=== PATIENT | female | born 1980 | race Caucasian/White ===

== ENCOUNTER 2024-04-13 22:01 | Emergency (ER) | payer OTHER, MEDICAID, SELFPAY ==
[2024-04-13 22:05] VITALS: BP 156/84; PULSE 79; RESP 18; TEMP 36.3; O2SAT 96; BMI 40.8
--- NOTE | 2024-04-13 22:15 | ECG_ITS ---
[facility] Test Date: 2024-04-13 Pat Name: Halima Mesa Department: Room: Gender: Female Physician/Internist: : 1980 Requested By: Delta Clay Order Number: [id number] Lainez MD: Bernard Shen M.D. Measurements Intervals [place] Rate: 76 P: 14 SD: 167 QRS: 56 QRSD: 80 T: 35 QT: 365 QTc: 411 Interpretive Statements SINUS RHYTHM No previous ECG available for comparison Electronically Signed On 04-16-2024 18:06:53 SAND SLINGER by Bernard Shen M.D. [id number]
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
[2024-04-13 22:41] VITALS: BP 148/66; PULSE 77; RESP 18; O2SAT 97
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
[2024-04-13 23:00] LABS: Basophils % 0.4 %; Eosinophils # 0.6 10^3/uL (0.0-0.8); Eosinophils % 6.6 %; Hematocrit 38.6 % (36-47); Lymphocytes % 21.9 %; Mean Corpuscular HGB Conc 30.8 g/dL (30-55); Mean Corpuscular Hemoglobin 26.2 pg (27-33); Mean Platelet Volume 9.1 fL (7.4-10.4); Monocytes # 0.3 10^3/uL (0.2-0.9); Monocytes % 3.6 %; Neutrophils # 6.04 10^3/uL (1.8-7.7); Neutrophils % 67.3 %; Nucleated Red Blood Cells % 0 %; Platelet Count 342 10^3/cmm (157-399); Red Blood Count 4.54 10^6/uL (3.85-5.65); White Blood Count 8.98 10^3/uL (3.29-11.43)
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
[2024-04-13 23:21] LABS: Alanine Aminotransferase 14 U/L (0-33); Albumin Level 3.8 g/dL (3.5-5.2); Alkaline Phosphatase 104 U/L (35-105); Anion Gap 15.9 (5-19); Aspartate Amino Transferase 14 U/L (0-32); Blood Urea Nitrogen 13 mg/dL (6-20); Calcium 9.4 mg/dL (8.5-10.5); Carbon Dioxide 25 mmol/L (22-29); Chloride 102 mmol/L (98-107); Creatinine Clr Calc Pharmacy 119.3062; Glomerular Filtration Rate 68.7 mL/min (90-130); Glucose 150 mg/dL (65-115); Osmolality Calculated 291 mOsm/kg (285-295); Potassium 3.9 mmol/L (3.5-5.1); Sodium 139 mmol/L (136-145); Total Bilirubin 0.2 mg/dL (0.15-1.2); Total Protein 7.8 g/dL (6.6-8.7)
[2024-04-13 23:30] VITALS: BP 145/63; PULSE 86; RESP 19; O2SAT 97
[2024-04-13] MEDS: ipratropium-albuterol 3 mL Neb INHALATION (23:57)
[2024-04-13 23:59] VITALS: PULSE 78; RESP 18; O2SAT 98
[2024-04-14] VITALS: BP 135/57; PULSE 85; RESP 19; O2SAT 97
[2024-04-14 00:02] VITALS: PULSE 82; RESP 18; O2SAT 99
[2024-04-14 00:14] VITALS: BP 137/60; PULSE 75; RESP 18; O2SAT 98
== END 2024-04-14 00:15 | disposition home or self-care (01) ==
PROVIDERS: Emergency Provider Physician Assistant; PCP Nurse Practitioner
DX: T59.891A Toxic effect of other specified gases, fumes and vapors, accidental (unintentional), initial encounter (principal); X58.XXXA Exposure to other specified factors, initial encounter; J45.21 Mild intermittent asthma with (acute) exacerbation
CPT/HCPCS: 36415; 71045; 80053; 85025; 93005; 94640; 99285

== ENCOUNTER → 2024-09-15 13:22 | Outpatient (BNVA) | payer OTHER, MEDICAID, SELFPAY | PROVIDERS: PCP Nurse Practitioner; Visit Provider Family Medicine | DX: R30.0 Dysuria (principal) | CPT/HCPCS: 81000 ==

== ENCOUNTER 2024-09-16 10:39 | Emergency (ER) | payer OTHER, MEDICAID, SELFPAY ==
--- OUTSIDE RECORDS SUMMARY | 2023-12-05 04:00 | XMS_ITS ---
Author Organization [facility] Address [address] [place] [address] Care Team Providers Care Newspaper Vendor Name Role Phone Rhea MILES, [facility] Primary Care Provider U milagrossouravaliza McdanielsServando Unavailable [phone] Migration, Provider Unavailable Unavailable REASON FOR VISIT EMR-[facility] [place] Encounters Encounter Location Date Provider Diagnosis Migrated_Facility 0 0 12/05/2023 Provider Migration Plan Of Treatment Medication Medication Name Sig Start Date Stop Date Notes HYDROcodone-Acetaminop hen 5-325 MG Oral Tablet 1 Tablet Every 6 Hours PRN do not exceed 3 tablets a day. 07/15/2023 08/14/2023 *Reorder from [facility] for eRx and Interaction Alerts* Progress Notes * RANDI MESA SDOB: [birth year] (44 yo F)Acc No.[id number]:12/05/2023 Patient: RANDI GUALLPA :1980 A ge:43 Y S ex:Female Address:[place] [address] * Refills Stop HYDROcodone-Acetaminophen 5-325 MG Oral Tablet, 1 Tablet Every 6 Hours PRN do not exceed 3 tablets a day. Subjective: * Chief Complaints: * E MR-Segundo * * Date:
--- OUTSIDE RECORDS SUMMARY | 2023-12-06 04:00 | XMS_ITS ---
Author Organization [facility] Address [address] [place] [address] Care Team Providers Care Shear Operator Name Role Phone Rhea MILES, [facility] Primary Care Provider U milagrosdionisio McdanielsServando Unavailable [phone] Migration, Provider Unavailable Unavailable Allergies Allergen (clinical drug ingredient) Drug/Non Drug Allergy documented on EMR Reaction Allergy Type Onset Date Status Substance with sulfonamide structure and antibacterial mechanism of action (substance) SULFA (SULFONAMIDE ANTIBIOTICS) (uncoded) Unknown Allergy Active meloxicam Meloxicam breaks out Drug Allergy Active amoxicillin Amoxicillin Unknown Drug Allergy Act thais sulfadiazine Sulfadiazine Unknown Drug Allergy A ctive tramadol Tramadol Unknown Drug Allergy Active REASON FOR VISIT EMR-[facility] [place] Social History Social History Additional Details Category Social Info Options Details Migrated Social History Migrated Social History Alcoholic beverages? - No, Currently on disability? - Yes, Marital Status - single, Smoking status (MU) - Never smoker, Working currently? - No Encounters Encounter Location Date Provider Diagnosis Migrated_Facility 0 0 12/06/2023 Provider Migration Plan Of Treatment No Information Progress Notes * RANDI MESA SDOB: [birth year] (44 yo F)Acc No.[id number]:12/06/2023 Patient: RANDI GUALLPA :1980 A ge:43 Y S ex:Female Address: [place] [address] Subjective: * Chief Complaints: * E MR-Segundo * Medical History: Arthritis, M igraines, S tomach ulcer, S welling of joint of multiple sites, * Surgical History: section Gallbladder surgery Kyphoplasty * Family History: M igrated Family History: : chronic pain, D iabetes, f ibromyalgia, R heumatoid arthritis. * Social History: M igrated Social History: M igrated Social History: Alcoholic beverages? - No, C urrently on disability? - Yes, M arital Status - single, S moking status (MU) - Never smoker, W orking currently? - No. * Allergies: S ULFA (SULFONAMIDE ANTIBIOTICS): AllergyMeloxicam: breaks out - AllergyAmoxicillin: AllergySulfadiazine: AllergyTramadol: Allergy * * Date:
[2024-09-16 10:40] VITALS: BP 128/59; PULSE 61; RESP 16; TEMP 37; O2SAT 97; BMI 38.4
--- OUTSIDE RECORDS SUMMARY | 2024-09-16 10:46 | XMS_ITS | Patient Health Record ---
Author Organization [facility] Address [address] [address] Care Team Providers Care Decorating And Assembly Supervisor Name Role Phone Ethel Stokes Unavailable [phone] Allergies Allergen (clinical drug ingredient) Drug/Non Drug Allergy documented on EMR Reaction Allergy Type Onset Date Status meloxicam Meloxicam Unknown Drug Allergy Active Substance with sulfonamide structure and antibacterial mechanism of action (substance) Sulfa Antibiotics hives Drug Allergy Active Reason For Referral No Information Medications Medication SIG (Take, Route, Frequency, Duration) Notes Start Date End Date Status Triamcinolone Acetonide 0.1 % 1 application Externally Twice a day; Duration: 7 days 07/26/2024 Active Triamcinolone Acetonide 0.1 % 1 application Externally Twice a day; Duration: 7 days 08/04/2021 Not-Taking Albuterol Sulfate HFA 108 (90 Base) MCG/ACT INHALE TWO (2) PUFFS EVERY 4 HOURS NEEDED FOR COUGH/WHEEZING; Duration: 15 Active AeroChamber MV - as directed; Duratio n: 14 days Active Ventolin HFA 108 (90 Base) MCG/ACT 2 puff Inhalation every 4 hrs; Duration: as needed 09/26/2021 Not-Taking Penicillin V Potassium 500 MG 1 tablet Orally four times daily Not-Taking traMADol HCl 50 MG 1 tablet as needed f or pain Orally twice daily; Duration: 5 days 11/19/2021 Not-Taki ng Social History Sex Assigned At : Social History Observation Description Sex Assigned At Female Problems Problem Type SNOMED Code ICD Code Onset Dates Problem Status W/U Status Risk Notes Problem Morbid obesity (disorder) (373603097) Morbid (severe) obesity due to excess calories (E66.01) Active confirmed Vital Signs Heart Rate 59 /min 07/26/2024 Temperature 98.3 degrees Fahrenheit 07/26/2024 Height-cm 175.26 cm 07/26/2024 Oximetry 98 % 07/26/2024 Weight-kg 130.45 kg 07/26/2024 Height 69 in 07/26/2024 Weight 287.6 lbs 07/26/2024 BMI 42.47 kg/m2 07/26/2024 Encounters Encounter Location Date Provider Diagnosis [place] [address] [address] [facility] [address] [place] [address] 07/26/2024 Ethel [place] Contact dermatitis due to plant L25.5 and Morbid (severe) obesity due to excess calories E66.01 Assessments Encounter Date Diagnosis (ICD Code) Assessment Notes Treatment Notes Treatment Clinical Notes Section Notes 07/26/2024 Morbid (severe) obesity due to excess calories (ICD-10 - E66.01) Activity as tolerated. 07/26/2024 Contact dermatitis due to plant (ICD-10 - L25.5) 07/26/2024 Other daily soapy bath or shower. wash any contaminated items. rtc if worsening or not improving Plan Of Treatment No Information Insurance Providers Payer Name Payer Address Payer Phone Subscriber Number Group Number Insured Name Patient Relationship to Insured Coverage Start Date Coverage End Date [facility] [address] [place] [address] [id number] MODSHalima Garcia Self - patient is the insured Medicaid [address] [place] [address] [id number] Halima Mesa Self - patient is the insured Medical (General) History Medical History History ICD Code Crohn's disease diverticulosis
--- OUTSIDE RECORDS SUMMARY | 2024-09-16 10:46 | XMS_ITS | Patient Health Record ---
Author Organization [facility] Address [address] [place] [address] Care Team Providers Care Central Office Equipment Installer Name Role Phone Rhea MILES, [facility] Primary Care Provider U Servando Mercado Unavailable [phone] Migration, Provider Unavailable Unavailable Petrona Agudelo Unavailable [phone] Allergies Allergen (clinical drug ingredient) Drug/Non Drug Allergy documented on EMR Reaction Allergy Type Onset Date Status meloxicam Meloxicam breaks out Drug Allergy Active amoxicillin Amoxicillin Unknown Drug Allergy Act thais Substance with sulfonamide structure and antibacterial mechanism of action (substance) Sulfa Antibiotics Unknown Drug Allergy Active sulfadiazine Sulfadiazine Unknown Drug Allergy A ctive tramadol Tramadol Unknown Drug Allergy Active Reason For Referral No Information Medications Medication SIG (Take, Route, Frequency, Duration) Notes Start Date End Date Status Vader 5-325 MG Tablet 1 tablet as needed Orally every 6 hrs; Duration: 7 days 08/04/2019 Not-Taking Gabapentin 300 MG Capsule 1 capsule Orally TID Active Omeprazole 20 MG Capsule Delayed Release 1 capsule 30 minutes before morning meal Orally Once a day Active Vader 7.5-325 MG Tablet 1 tablet as need ed Orally every 6 hrs; Duration: 7 days 07/28/2019 Not-Taking Diclofenac Sodium 75 MG Tablet Delayed Release 1 tablet Orally Twice a day; Duration: 30 day(s) 11/15/2019 Active Social History Tobacco Use: Social History Observation Description Date Details (start date - stop date) Never Smoker NA - NA Social History Drugs/Alcohol: Social Info Question Answer Notes Alcohol Screen (Audit-C) Did you have a drink containing alcohol in the past year? No Points 0 Interpretation Negative Drugs Have you used drugs other than those for medical reasons in the past 12 months? No Tobacco Use: Social Info Question Answer Notes xTobacco Use/Smoking Are you a nonsmoker Additional Details Category Social Info Options Details Migrated Social History Migrated Social History Alcoholic beverages? - No, Currently on disability? - Yes, Marital Status - single, Smoking status (MU) - Never smoker, Working currently? 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 Encounters Encounter Location Date Provider Diagnosis [facility] [address] [facility] [place] [address] 10/13/2023 Petrona Agudelo [facility] [address] [facility] [place] [address] 09/30/2023 Petrona Agudelo Migrated_Facility 0 0 12/06/2023 Provider Migration Migrated_Facility 0 0 12/05/2023 Provider Migration Plan Of Treatment No Information Insurance Providers Payer Name Payer Address Payer Phone Subscriber Number Group Number Insured Name Patient Relationship to Insured Coverage Start Date Coverage End Date [place] [address] [place] [address] [id number] RANDI MESA Self - patient is the insured [facility] Commercial [address] [address] [place] [address] [id number] RANDI MESA Self - patient is the insured [place] Medicaid [address] [place] [address] [id number] RANDI MESA Self - patient is the insured Medical (General) History Medical History History ICD Code Chronic back pain Chron's disease IBS DM type 2 Surgical History Surgery Date(Month/Year) Cholecystectomy x 2 Kyphoplasty section Gallbladder surgery Hospitalization History Reason Date(Month/Year) x 2 Cholecystectomy
--- NOTE | 2024-09-16 10:56 | W.ED.GENADLT ---
HPI - General Adult General: Chief complaint: Eye Problems Stated complaint: swelling/redness - left eye Time Seen by Provider: 09/16/24 10:41 Source: patient Mode of arrival: ambulatory Limitations: no limitations History of Present Illness: Patient is a 44-year-old female presents to ED today with two separate complaints. The first of which is a red itchy rash involving her face. She states she has been outside working around plants and trees and thinks maybe I got into something . She states rash initially was on the right side of her face but has now spread. Again she states it is itchy. She was reportedly seen recently and got placed on Augmentin for possible cellulitis but patient states she is unable to take this due to an allergy. Patient does not feel like this is cellulitis. No systemic symptoms. No fevers. Her second complaint is itchiness and swelling involving her vulva. She states she was recently placed on 2 rounds of antibiotics due to a dental infection and thinks she developed a yeast infection. She states she had been treated with Diflucan and is now on Flagyl as somebody thought she maybe had bacterial vaginosis. Patient states she has no concern for STIs has not had any new sexual partners. Onset (ago): day(s) Location: face and genitals Severity: mild Quality: burning Associated symptoms: Reports rash (face); Deny chest pain, dyspnea, headache(s), malaise, nausea or vomiting Treatments prior to arrival: none Related Data Previous Rx's ?Medication ?Instructions ?Recorded prednisone 10 mg tablet 10 mg PO DAILY 7 days #27 tabs 09/16/24 Allergies Allergy/AdvReac Type Severity Reaction Status Date / Time Sulfa (Sulfonamide Allergy Unknown Verified 09/15/24 13:19 Antibiotics) Review of Systems Const: Denies: fever(s), chills, body aches, fatigue or malaise Eyes: Denies: change in vision or blurry vision Card: Denies: chest pain Resp: Denies: dyspnea GI: Denies: abdominal pain, nausea, vomiting or change in bowel habits : Reports: genital pruritis; Denies: flank pain, difficulty voiding, dysuria, urinary frequency, urinary urgency, urinary hesitancy, vaginal odor, vaginal bleeding or pelvic pain Musc: Denies: neck pain, back pain, extremity pain, extremity swelling, joint pain, joint swelling or joint redness Skin/Breast: Reports: rash (face) Neuro: Denies: headache(s), numbness in extremities, weakness in extremities, sensory changes or dizziness PFSH ED PFSH: Social History Smoking and tobacco/nicotine status: never used tobacco/nicotine Physical Exam Const: COMMON NORMALS: no acute distress, patient oriented x3, no limitations, alert and well nourished GENERAL APPEARANCE: cooperative NUTRITIONAL APPEARANCE: overweight ORIENTATION/CONSCIOUSNESS: Yes awake, Yes oriented to person, Yes oriented to place and Yes oriented to time HENMT: FACE & SINUS: other (dermatitis involving face) Resp: COMMON NORMALS: normal respiratory effort and clear to auscultation bilaterally AUSCULTATION: clear to auscultation bilaterally Cardio: COMMON NORMALS: regular rate and regular rhythm RATE: regular rate RHYTHM: regular rhythm : OTHER: Exterior genital exam performed with a registered dental hygienist. She appears to have inflamed and edematous vulva-admittedly probably from scratching. No labial abscess or Bartholin cyst/abscess. Extremity: GENERAL: Yes normal exam except as noted Neuro: COMMON NORMALS: patient oriented x3, moves all extremities, no focal motor deficits, no sensory deficits noted and gait normal SENSORIUM/ORIENTATION: Yes alert, Yes oriented to person, Yes oriented to place and Yes oriented to time Skin: RASHES: rashes noted (face) Course Vital Signs: Vital signs: Vital Signs Temperature 98.6 F 09/16/24 10:40 Pulse Rate 61 09/16/24 10:40 Respiratory Rate 16 09/16/24 10:40 Blood Pressure 128/59 09/16/24 10:40 Pulse Oximetry 97 09/16/24 10:40 Oxygen Delivery Me thod Room Air 09/16/24 10:40 [facility] - General Adult Medical Decision Making Patient will be treated with antibiotics for her facial dermatitis most likely related to plants given her history. Discussed [id number] Monistat for treatment of her most likely candidal vulvovaginitis. Recommend f/u with primary care. No radiology studies performed this visit Discharge Plan Discharge Patient Disposition: Home Clinical Impression: Dermatitis due to plants, Candidal vulvitis Condition: Stable Prescriptions: New prednisone 10 mg tablet 10 mg PO DAILY 7 Days Qty: 27 0RF Rx Instructions: 6 tabs on days 1-2, 5 tabs on days 3, 4 tabs on day 4, 3 tabs on day 5, 2 tabs on day 6, 1 tab on day 7 Discontinued amoxicillin-pot clavulanate 875-125 mg tablet 1 tab PO BID Qty: 14 0RF Discharge Orders: Discharge ED (Routine); Ordered 09/16/24 Ordered By: Dot Mahmood Referrals: Ethel Stokes FNP [Primary Care Provider, Family Practice] Patient Instructions: Patient Portal & Fabiola Instructions Print Language: Mohawk Coding Level of Care Code ED B[employer] Helper for Ishan Banks
[2024-09-16] MEDS: hydrocortisone 100 mg/2 mL SDV IM (11:21)
[2024-09-16 11:30] VITALS: BP 126/64; PULSE 62; O2SAT 98
== END 2024-09-16 11:31 | disposition home or self-care (01) ==
PROVIDERS: Emergency Provider Physician Assistant; PCP Nurse Practitioner
DX: L25.5 Unspecified contact dermatitis due to plants, except food (principal); B37.31 Acute candidiasis of vulva and vagina
CPT/HCPCS: 96372; 99284; J1720

== ENCOUNTER → 2025-01-19 08:15 | Outpatient (BNVA) | payer MEDICARE, MEDICAID, SELFPAY | PROVIDERS: PCP Family Medicine; Visit Provider Internal Medicine Cardiovascular Disease | DX: R07.9 Chest pain, unspecified (principal) | CPT/HCPCS: 93005; 99204 ==